=== PATIENT | male | born 1985 | race Caucasian/White ===

== ENCOUNTER 2019-02-09 19:08 | Emergency (ER) | payer MEDICAID ==
[~2019-02-09] VITALS: Ht 188 cm; Wt 76.0 kg
[~2019-02-09 19:08] MED LIST: NO HOME MEDS
[2019-02-09] MEDS ORDERED: paliperidone palmitate 156 mg/ml inj.**IM only IM ONE (19:55)
[2019-02-09] MEDS ORDERED: diphenhydrAMINE 25mg capsule PO ONE (19:55)
[2019-02-09] MEDS ORDERED: LORazepam 2 mg/ml vial IM ONE (19:55)
[2019-02-09 20:28] VITALS: BP 130/72
== END 2019-02-09 20:30 | disposition home or self-care (01) ==
LOC: ER 19:08
DX: F20.9 Schizophrenia, unspecified (principal); Z76.0 Encounter for issue of repeat prescription; Z56.0 Unemployment, unspecified
CPT/HCPCS: 96372; 99283; J2060; Q0163

== ENCOUNTER 2022-05-07 16:58 | Emergency (ER) | payer MEDICAID | END 2022-05-07 17:10 | disposition left against medical advice (07) | LOC: ER 16:58 | DX: R45.851 Suicidal ideations (principal); Z53.21 Procedure and treatment not carried out due to patient leaving prior to being seen by health care provider ==

== ENCOUNTER 2024-08-01 17:38 | Inpatient (IN) | payer MEDICAID ==
[~2024-08-01] VITALS: Ht 188 cm; Wt 71.4 kg
[~2024-08-01 17:38] MED LIST changes: +ATI1T PO; +BENZ1TAB97 PO; +CLON0.1T2 PO; +CLOZ100T13 PO; +CLOZ25TA12 PO; +NICO-687 TD; +NICO-907 BC; -NO HOME MEDS; +PROP10TA10 PO; +TRAZ-251 PO
[2024-08-01] MEDS ORDERED: haloperidol lactate 5mg/ml inj IM ONE (18:25)
[2024-08-01] MEDS ORDERED: haloperidol decanoate***LONG-ACTING*** 100mg/ml **IM only** inj. IM ONE (18:25)
[2024-08-01] MEDS: haloperidol lactate 5mg/ml inj IM ONE (18:43)
[2024-08-01] MEDS: LORazepam 2 mg/ml vial IM ONE (18:43)
[2024-08-01] MEDS: diphenhydrAMINE 50 mg/ml inj IM ONE (18:43)
[2024-08-01] MEDS ORDERED: CARI4.5C PO (19:12)
[2024-08-01] MEDS ORDERED: OLAN10TA73 PO (19:12)
[2024-08-01] MEDS ORDERED: FLUV25TA9 PO (19:12)
[2024-08-01 19:42] LABS: BASOPHILS # (AUTO) 0.1 X10'3 (0-0.2); BASOPHILS % (AUTO) 0.6 % (0-1); EOSINOPHILS % (AUTO) 0.2 % (0-6); HEMATOCRIT 47.5 % (42.0-52.0); HEMOGLOBIN 16.5 g/dl (14.0-17.9); LYMPHOCYTES # (AUTO) 1.9 X10'3 (1.1-4.8); LYMPHOCYTES % (AUTO) 20.9 % (21-51); MEAN CORPUSCULAR HEMOGLOBIN 33.6 PG (27.0-31.0); MEAN CORPUSCULAR HGB CONC 34.6 g/dL (33.0-36.5); MEAN CORPUSCULAR VOLUME 97.1 FL (78-98); MEAN PLATELET VOLUME 9.6 FL (7.4-10.4); MONOCYTES # (AUTO) 0.9 X10'3 (0-0.9); MONOCYTES % (AUTO) 10.5 % (2-12); NEUTROPHILS % (AUTO) 67.8 % (42-75); PLATELET COUNT 186 X10'3 (140-440); RED CELL DISTRIBUTION WIDTH 13.5 % (11.5-14.5); WHITE BLOOD COUNT 8.9 X10'3 (4.5-11.0)
[2024-08-01 20:04] LABS: ALBUMIN 4.1 G/DL (3.4-5.0); ANION GAP 10 (8-16); BLOOD UREA NITROGEN 16 MG/DL (7-18); BUN/CREATININE RATIO 15.7 (10.0-20.0); CALCIUM 8.9 MG/DL (8.5-10.1); CHLORIDE 106 MMOL/L (99-107); CREATININE 1.02 MG/DL (0.60-1.10); GLUCOSE 106 MG/DL (70-104); POTASSIUM 3.9 MMOL/L (3.5-5.1); SODIUM 143 MMOL/L (135-145); THYROID STIMULATING HORMONE 2.03 ulU/ml (0.34-4.50); TOTAL CARBON DIOXIDE 26.7 MMOL/L (24-32); eCRCL 105 ML/MIN; eGFR 82 ML/MIN
[2024-08-01 20:18] LABS: ETHANOL < 10 MG/DL (<10)
[2024-08-01 20:56] LABS: BILIRUBIN,URINE NEGATIVE (Neg); CLARITY,URINE CLEAR (Clear); COLOR,URINE YELLOW (Yellow); GLUCOSE, URINE 250 mg/dl (Neg); KETONES,URINE NEGATIVE (Neg); LEUKOCYTE ESTERASE ,URINE NEGATIVE (Neg); NITRITES, URINE NEGATIVE (Neg); OCCULT BLOOD,URINE NEGATIVE (Neg); PROTEIN,URINE NEGATIVE (Neg); UROBILINOGEN,URINE 0.2 E.U/dL (0.2-1.0)
[2024-08-01] MEDS: NICOTINE POLACRILEX 2 MG LOZENGE BC PRN (20:56)
[2024-08-01 20:59] LABS: UA COLLECTION TYPE CLN CATCH MIDSTREAM
[2024-08-01] MEDS ORDERED: CLOZ50TA9 PO (21:15)
[2024-08-01] MEDS ORDERED: PROP10TA10 PO (21:15)
[2024-08-01] MEDS ORDERED: OLAN20TA81 PO (21:15)
[2024-08-01] MEDS ORDERED: CLOZ100T13 PO (21:15)
[2024-08-01 21:18] LABS: URINE AMPHETAMINE SCREEN NEGATIVE (Neg); URINE BARBITUATE SCREEN NEGATIVE (Neg); URINE BENZODIAZEPINES SCREEN NEGATIVE (Neg); URINE CANNABINOID SCREEN NEGATIVE (Neg); URINE COCAINE SCREEN NEGATIVE (Neg); URINE METHADONE SCREEN NEGATIVE (Neg); URINE OPIATE SCREEN NEGATIVE (Neg); URINE PHENCYCLIDINE SCREEN NEGATIVE (Neg)
[2024-08-01] MEDS: fluvoxamine 25 MG tablet PO SCH (23:04)
[2024-08-01] MEDS: olanzapine 10mg tablet PO SCH (23:04)
[2024-08-02] MEDS: propranolol 10mg tablet PO PRN (04:44)
[2024-08-02] MEDS: ziprasidone IM 20mg inj **IM only IM ONE (05:32)
[2024-08-02] MEDS ORDERED: CARIPRAZINE HYDROCHLORIDE 4.5 MG PO SCH (08:00)
[2024-08-02] MEDS: CARIPRAZINE HYDROCHLORIDE 4.5 MG PO SCH (09:58)
[2024-08-02] MEDS: nicotine 21mg patch - 24 hr TD SCH (09:58)
[2024-08-02] MEDS: haloperidol lactate 5mg/ml inj IM ONE (11:37)
[2024-08-02] MEDS: LORazepam 2 mg/ml vial IM ONE ×2 (11:37→21:23)
[2024-08-02] MEDS: diphenhydrAMINE 50 mg/ml inj IM ONE (11:37)
[2024-08-02] MEDS ORDERED: non-formulary drug (Clozapine 1 TAB) PO SCH (21:00)
[2024-08-02 21:55] VITALS: BP 103/70; PULSE 94; RESP 17; TEMP 97.7; O2SAT 97
[2024-08-02 22:45] VITALS: RESP 17; O2SAT 97
[2024-08-03 07:00] VITALS: RESP 16; O2SAT 99
[2024-08-03 08:00] VITALS: BP 117/87; PULSE 80; RESP 16; TEMP 97.1; O2SAT 99
[2024-08-03] MEDS: lactose-reduced food (Ensure Enlive) - 237ml bottle PO SCH (13:12)
[2024-08-03] MEDS: diphenhydrAMINE 50 mg/ml inj IM ONE (17:18)
[2024-08-03] MEDS: LORazepam 2 mg/ml vial IM ONE (17:18)
[2024-08-03] MEDS: haloperidol lactate 5mg/ml inj IM ONE (17:18)
[2024-08-03 19:00] VITALS: RESP 18; O2SAT 97
[2024-08-03 20:00] VITALS: BP 133/84; PULSE 103; RESP 18; TEMP 98.8; O2SAT 97
[2024-08-04] MEDS: chlorproMAZINE 25mg tablet PO PRN (06:31)
[2024-08-04 07:00] VITALS: BP 105/87; PULSE 112; RESP 16; TEMP 97.8; O2SAT 99
[2024-08-04] MEDS: LORazepam 1 MG tablet PO ONE (07:26)
[2024-08-04] MEDS: CLOZAPINE 25 MG oral disintegrating tablet PO SCH (12:54)
[2024-08-04 16:34] VITALS: BP 133/71; PULSE 109
[2024-08-04] MEDS: olanzapine 10mg tablet PO SCH (19:24)
[2024-08-04 20:00] VITALS: BP 116/82; PULSE 105; RESP 16; TEMP 97.2; O2SAT 97
[2024-08-05 07:00] VITALS: BP 130/62; PULSE 91; RESP 16; TEMP 98; O2SAT 91; O2SAT 97
[2024-08-05 18:48] VITALS: RESP 16; O2SAT 97
[2024-08-05 19:20] VITALS: BP 134/84; PULSE 101; RESP 18; TEMP 97.6; O2SAT 95
[2024-08-06 07:00] VITALS: RESP 12; O2SAT 98
[2024-08-06] MEDS: OLANZAPINE 5 MG TABLET PO SCH ×2 (07:13→19:56)
[2024-08-06 08:00] VITALS: BP 131/94; PULSE 130; RESP 12; TEMP 98.1; O2SAT 98
[2024-08-06] MEDS ORDERED: ondansetron 4mg rapidly disintigrating tab PO PRN (09:50)
[2024-08-06] MEDS ORDERED: acetaminophen 325mg tablet PO PRN ×2 (09:50)
[2024-08-06] MEDS ORDERED: mag hydrox/Alum hydrox/simeth 30ml oral suspension PO PRN (09:50)
[2024-08-06] MEDS ORDERED: loperamide 2mg capsule PO PRN (09:50)
[2024-08-06] MEDS: magnesium hydroxide 30ml (MOM) UD suspension PO PRN (09:57)
[2024-08-06 18:40] VITALS: RESP 16; O2SAT 97
[2024-08-06 19:26] VITALS: BP 132/96; PULSE 104; RESP 16; TEMP 97.8; O2SAT 98
[2024-08-06] MEDS: clozapine 100mg tablet PO SCH (19:56)
[2024-08-06] MEDS: hydrOXYzine 10 MG tablet PO PRN (20:52)
[2024-08-06] MEDS: NICOTINE POLACRILEX 2 MG LOZENGE BC ONE (21:27)
[2024-08-07 07:00] VITALS: RESP 15; O2SAT 97
[2024-08-07 08:00] VITALS: PULSE 124; RESP 15; TEMP 96.7; O2SAT 97
[2024-08-07] MEDS: LORazepam 1 MG tablet PO ONE (14:26)
[2024-08-07] MEDS: diphenhydrAMINE 25mg capsule PO ONE (14:26)
[2024-08-07] MEDS: haloperidol 5mg tablet PO ONE (14:26)
[2024-08-07] MEDS: diphenhydrAMINE 50 mg/ml inj IM ONE (16:05)
[2024-08-07] MEDS: LORazepam 2 mg/ml vial IV ONE (16:05)
[2024-08-07 18:30] VITALS: RESP 16; O2SAT 97
[2024-08-07 19:18] VITALS: BP 122/86; PULSE 111; RESP 18; TEMP 99; O2SAT 97
[2024-08-08 07:00] VITALS: RESP 15
[2024-08-08 08:00] VITALS: RESP 14
[2024-08-08] MEDS: LORazepam 1 MG tablet PO ONE (15:18)
[2024-08-08 19:00] VITALS: RESP 18; O2SAT 96
[2024-08-08 20:00] VITALS: BP 132/86; PULSE 117; RESP 18; TEMP 98.5; O2SAT 96
[2024-08-08] MEDS: clozapine 25mg tablet PO SCH (21:08)
[2024-08-08] MEDS: clozapine 100mg tablet PO SCH (21:12)
[2024-08-09 07:00] VITALS: RESP 15
[2024-08-09 08:00] VITALS: RESP 14
[2024-08-09] MEDS: chlorproMAZINE 25mg tablet PO PRN (09:14)
[2024-08-09] MEDS ORDERED: hydrOXYzine 10 MG tablet PO PRN (09:25)
[2024-08-09] MEDS: hydrOXYzine 25 MG tablet PO SCH (12:44)
[2024-08-09] MEDS: hydrOXYzine 25 MG tablet PO PRN (14:48)
[2024-08-09 18:42] VITALS: RESP 16; O2SAT 96
[2024-08-09] MEDS: olanzapine 10mg tablet PO SCH (20:23)
[2024-08-09 20:41] VITALS: BP 136/94; PULSE 118; RESP 20; TEMP 99.4; O2SAT 98
[2024-08-09] MEDS: traZODone 50mg tablet PO PRN (22:55)
[2024-08-10 07:55] VITALS: RESP 18
[2024-08-10 08:04] VITALS: RESP 18
[2024-08-10] MEDS: OLANZapine **IM** 10 mg inj. IM ONE ×2 (12:34→12:38)
[2024-08-10] MEDS: diphenhydrAMINE 50 mg/ml inj IM ONE (12:47)
[2024-08-10] MEDS: diazepam inj 5 MG/ML inj. IM ONE (12:47)
[2024-08-10] MEDS: OLANZapine **IM** 10 mg inj. IM STA (12:48)
[2024-08-10 19:00] VITALS: RESP 18; O2SAT 98
[2024-08-10 20:08] VITALS: BP 123/94; PULSE 95; RESP 18; TEMP 99.3; O2SAT 98
[2024-08-10] MEDS: risperiDONE 2mg tablet PO SCH (21:12)
[2024-08-10] MEDS: fluvoxamine 25 MG tablet PO SCH (21:12)
[2024-08-11 07:06] VITALS: RESP 18
[2024-08-11 08:46] VITALS: RESP 16
[2024-08-11 19:00] VITALS: RESP 16; O2SAT 96
[2024-08-11 20:22] VITALS: BP 108/79; PULSE 92; RESP 16; TEMP 98.7; O2SAT 96
[2024-08-11] MEDS: diphenhydrAMINE 50 mg/ml inj IM ONE (21:33)
[2024-08-12 07:10] VITALS: RESP 16
[2024-08-12 07:59] VITALS: RESP 16
[2024-08-12] MEDS: diphenhydrAMINE 25mg capsule PO SCH (18:59)
[2024-08-12 19:00] VITALS: RESP 16; O2SAT 97
[2024-08-12 19:52] VITALS: BP 127/83; PULSE 108; RESP 16; TEMP 98.9; O2SAT 97
[2024-08-12] MEDS ORDERED: diphenhydrAMINE 50 mg/ml inj IM ONE (21:00)
[2024-08-13 07:00] VITALS: RESP 16
[2024-08-13 19:00] VITALS: RESP 18; O2SAT 97
[2024-08-13 20:00] VITALS: BP 103/75; PULSE 94; RESP 18; TEMP 98.7; O2SAT 97
[2024-08-14 07:30] VITALS: RESP 16
[2024-08-14 19:00] VITALS: RESP 18; O2SAT 98
[2024-08-14 20:00] VITALS: BP 135/79; PULSE 97; RESP 18; TEMP 98.6; O2SAT 98
[2024-08-15 07:30] VITALS: RESP 16
[2024-08-15 19:00] VITALS: RESP 20; O2SAT 97
[2024-08-15 20:00] VITALS: BP 125/82; PULSE 85; RESP 20; TEMP 99.3; O2SAT 97
[2024-08-16 18:35] VITALS: RESP 18; O2SAT 97
[2024-08-16 19:37] VITALS: RESP 16
[2024-08-17 07:30] VITALS: RESP 14
[2024-08-17 19:00] VITALS: RESP 18; O2SAT 98
[2024-08-17 20:00] VITALS: BP 135/88; PULSE 90; RESP 18; TEMP 98; O2SAT 98
[2024-08-17] MEDS: risperiDONE 0.5mg tablet PO SCH (21:00)
[2024-08-18 07:30] VITALS: BP 116/84; PULSE 100; RESP 16; TEMP 98.1; O2SAT 96
[2024-08-18 08:00] VITALS: RESP 16; O2SAT 96
[2024-08-18 19:00] VITALS: RESP 16; O2SAT 98
[2024-08-18 20:00] VITALS: BP 116/78; PULSE 91; RESP 16; TEMP 98.2; O2SAT 98
[2024-08-19 07:45] VITALS: BP 127/69; PULSE 92; RESP 16; TEMP 98.3; O2SAT 98
[2024-08-19 08:00] VITALS: RESP 16; O2SAT 98
[2024-08-19 19:00] VITALS: RESP 18; O2SAT 98
[2024-08-19 20:00] VITALS: BP 107/74; PULSE 84; RESP 18; TEMP 97.9; O2SAT 98
[2024-08-20 07:00] VITALS: RESP 16; O2SAT 96
[2024-08-20 08:00] VITALS: BP 113/73; PULSE 86; RESP 16; TEMP 97.7; O2SAT 96
[2024-08-20 19:00] VITALS: RESP 14; O2SAT 98
[2024-08-20 20:00] VITALS: BP 119/82; PULSE 80; RESP 14; TEMP 98.9; O2SAT 98
[2024-08-21 07:00] VITALS: RESP 18
[2024-08-21 19:00] VITALS: RESP 12; O2SAT 98
[2024-08-21 20:00] VITALS: BP 117/75; PULSE 79; RESP 12; TEMP 98.9; O2SAT 98
[2024-08-22 07:00] VITALS: RESP 16; O2SAT 97
[2024-08-22 08:00] VITALS: BP 114/76; PULSE 99; RESP 16; TEMP 98.8; O2SAT 97
[2024-08-22 19:00] VITALS: RESP 16; O2SAT 97
[2024-08-22 20:00] VITALS: BP 110/70; PULSE 84; RESP 17; TEMP 98.3; O2SAT 98
[2024-08-23 07:00] VITALS: RESP 16; O2SAT 93
[2024-08-23 08:00] VITALS: BP 91/47; PULSE 76; RESP 16; TEMP 97.2; O2SAT 93
[2024-08-23 19:06] VITALS: RESP 16; O2SAT 98
[2024-08-23 19:42] VITALS: BP 126/76; PULSE 88; RESP 20; TEMP 98; O2SAT 100
[2024-08-24 07:30] VITALS: RESP 16
[2024-08-24 19:00] VITALS: RESP 18; O2SAT 98
[2024-08-24 20:00] VITALS: BP 110/66; PULSE 79; RESP 18; TEMP 97.8; O2SAT 98
[2024-08-25 07:13] VITALS: BP 100/61; PULSE 74; RESP 18; TEMP 99.4; O2SAT 99
[2024-08-25 07:56] VITALS: RESP 18; O2SAT 99
[2024-08-25 19:00] VITALS: RESP 16; O2SAT 98
[2024-08-25 20:00] VITALS: BP 120/75; PULSE 81; RESP 16; TEMP 98.6
[2024-08-26 07:30] VITALS: BP 113/70; PULSE 80; RESP 16; TEMP 98.5; O2SAT 97
[2024-08-26 08:00] VITALS: RESP 16; O2SAT 97
[2024-08-26 20:00] VITALS: BP 108/76; PULSE 70; RESP 16; TEMP 98.3; O2SAT 100
[2024-08-27 07:45] VITALS: BP 103/70; PULSE 77; RESP 16; TEMP 98.6; O2SAT 99
[2024-08-27 08:00] VITALS: RESP 16; O2SAT 99
[2024-08-27 19:00] VITALS: RESP 18; O2SAT 99
[2024-08-27 19:39] VITALS: BP 109/72; PULSE 78; RESP 18; TEMP 97.7; O2SAT 99
[2024-08-28 07:30] VITALS: BP 105/68; PULSE 62; RESP 15; TEMP 97.5; O2SAT 99
[2024-08-28 08:00] VITALS: RESP 15; O2SAT 99
[2024-08-28 19:00] VITALS: RESP 15; O2SAT 99
[2024-08-28 19:57] VITALS: BP 150/85; RESP 20; TEMP 99.1; O2SAT 100
[2024-08-29 07:20] VITALS: RESP 16; O2SAT 97
[2024-08-29 08:00] VITALS: BP 109/69; PULSE 60; RESP 15; TEMP 98.6; O2SAT 99
[2024-08-29 19:00] VITALS: RESP 17; O2SAT 98
[2024-08-29 19:24] VITALS: BP 123/74; PULSE 85; RESP 17; TEMP 98.6; O2SAT 98
[2024-08-30 07:30] VITALS: BP 113/74; PULSE 72; RESP 16; TEMP 98.7; O2SAT 98
[2024-08-30] MEDS ORDERED: TRAZ-251 PO (12:09)
[2024-08-30] MEDS ORDERED: HYDR-3686 PO (12:09)
[2024-08-30] MEDS ORDERED: RISP3TAB77 PO (12:09)
[2024-08-30 19:00] VITALS: RESP 16; O2SAT 99
[2024-08-30 20:00] VITALS: BP 119/80; PULSE 81; RESP 16; TEMP 98.9; O2SAT 99
[2024-08-31 07:31] VITALS: BP 119/75; PULSE 76; RESP 16; TEMP 97.6; O2SAT 97
[2024-08-31 08:17] VITALS: RESP 16; O2SAT 97
[2024-08-31 19:20] VITALS: RESP 17; O2SAT 98
[2024-08-31 20:00] VITALS: BP 115/73; PULSE 82; RESP 17; TEMP 97.8; O2SAT 98
[2024-09-01 07:39] VITALS: BP 120/70; PULSE 71; RESP 18; TEMP 99.4; O2SAT 98
[2024-09-01 07:40] VITALS: RESP 18; O2SAT 98
== END 2024-09-01 11:17 | disposition home or self-care (01) | DRG 750 ==
LOC: ER 17:38 → UNDOADMIN 08-02 17:00 → ADULT MH 08-02 17:00
PROVIDERS: ADMIT Psychiatry & Neurology Psychiatry; ATTEND Psychiatry & Neurology Psychiatry
PROC: GZHZZZZ Group Psychotherapy (ICD-10-PCS; principal; 2024-08-03)
PROC: GZ51ZZZ Individual Psychotherapy, Behavioral (ICD-10-PCS; 2024-08-03)
DX: F20.9 Schizophrenia, unspecified (principal); Z91.148 Patient's other noncompliance with medication regimen for other reason; F17.210 Nicotine dependence, cigarettes, uncomplicated; Z20.822 Contact with and (suspected) exposure to COVID-19; F41.9 Anxiety disorder, unspecified; Z79.899 Other long term (current) drug therapy; Z81.8 Family history of other mental and behavioral disorders; Z56.0 Unemployment, unspecified; Z88.8 Allergy status to other drugs, medicaments and biological substances
CPT/HCPCS: 36415; 80048; 80305; 80320; 81003; 84443; 85025; 87081; 87811; 96372; 99285; J1200; J1630; J2060; J3360; J3486; J3490; Q0161; Q0163; Q0177